=== PATIENT | male | born 1960 | race African-American/Black ===

== ENCOUNTER 2018-08-10 10:29 | Emergency (ER) | payer MEDICAID ==
[~2018-08-10] VITALS: Ht 175.3 cm; Wt 107.0 kg
[2018-08-10] MEDS ORDERED: ONDANSETRON HCL 4MG/2ML INJ IV STA (11:01)
[2018-08-10] MEDS ORDERED: SODIUM CHLORIDE 0.9% 1,000 ML IV ONE (11:01)
[2018-08-10] MEDS ORDERED: MECLIZINE 25MG TABLET PO ONE (11:15)
[2018-08-10 11:48] LABS: BASOPHILS % 1.2 % (0.0-2.0); EOSINOPHILS % 2.5 % (0.0-5.0); HEMATOCRIT. 45.5 % (42.0-52.0); HEMOGLOBIN. 15.4 g/dL (14.0-18.0); LYMPHOCYTES % 31.4 % (20.0-50.0); MEAN CORPUSCULAR VOLUME 82.8 fL (80.0-94.0); MEAN PLATELET VOLUME 10.4 fl (7.4-10.4); MONOCYTES % 6.6 % (2.0-8.0); NEUTROPHILS % 58.3 % (40.0-76.0); PLATELET 298 x1000/uL (130-400); RED CELL DISTRIBUTION WIDTH 13.4 % (11.6-14.6)
[2018-08-10 11:55] LABS: CHLORIDE 101 mEq/L (98-107)
[2018-08-10 11:58] LABS: ETHANOL BLOOD 21 mg/dL; PROTHROMBIN TIME 9.7 sec (9.1-11.1)
[2018-08-10 12:00] LABS: BETA HYDROXYBUTYRATE 0.2 mMol/L (0.0-0.3)
[2018-08-10 12:12] LABS: CLARITY URINE CLEAR (CLEAR); COLOR URINE YELLOW (YELLOW); KETONES URINE TRACE (NEGATIVE); LEUKOCYTE ESTERASE URINE NEGATIVE (NEGATIVE); NITRITE URINE NEGATIVE (NEGATIVE); OCCULT BLOOD URINE NEGATIVE (NEGATIVE); PROTEIN URINE NEGATIVE (NEGATIVE); SPECIFIC GRAVITY URINE 1.037 (1.005-1.030); UROBILINOGEN URINE 0.2 E.U./dL (0.2-1.0)
[2018-08-10 13:47] VITALS: BP 142/80
[2018-08-10 14:11] LABS: *AMPHETAMINES SCREEN URINE NEGATIVE (NEGATIVE); *BARBITURATES SCREEN URINE NEGATIVE (NEGATIVE); *BENZODIAZEPINES SCREEN URINE NEGATIVE (NEGATIVE); *COCAINE SCREEN URINE NEGATIVE (NEGATIVE); METHADONE URINE SCREEN NEGATIVE (NEGATIVE)
[2018-08-10 14:12] LABS: CANNABINOID URINE SCREEN NEGATIVE (NEGATIVE); PHENCYCLIDINE URINE SCREEN NEGATIVE (NEGATIVE)
[2018-08-10 14:15] LABS: OPIATES URINE SCREEN NEGATIVE (NEGATIVE)
== END 2018-08-10 13:48 | disposition home or self-care (01) ==
LOC: ER 10:29
DX: R51 Headache (principal); R42 Dizziness and giddiness; E11.65 Type 2 diabetes mellitus with hyperglycemia; Z98.890 Other specified postprocedural states
CPT/HCPCS: 36415; 70450; 74022; 80053; 80305; 81003; 82010; 82962; 83690; 83735; 83880; 84484; 85025; 85610; 93005; 96361; 96374; 99284; G0482; J2405; J7030; J8597

== ENCOUNTER 2020-11-21 10:11 | Emergency (ER) | payer MEDICAID ==
[~2020-11-21] VITALS: Ht 175.3 cm; Wt 103.0 kg
[2020-11-21] MEDS ORDERED: HYDROCODONE/ACETAMINOPHEN 5/325MG TABLET PO STA (10:44)
[2020-11-21 12:36] VITALS: BP 140/69
[2020-11-21 13:27] LABS: BASOPHILS % 0.9 % (0.0-2.0); EOSINOPHILS % 2.2 % (0.0-5.0); HEMATOCRIT. 41.7 % (42.0-52.0); HEMOGLOBIN. 13.9 g/dL (14.0-18.0); LYMPHOCYTES % 29.2 % (20.0-50.0); MEAN CORPUSCULAR HEMOGLOBIN 27.4 pg (28.0-32.0); MEAN CORPUSCULAR VOLUME 82.3 fL (80.0-94.0); MEAN PLATELET VOLUME 9.9 fl (7.4-10.4); MONOCYTES % 7.2 % (2.0-8.0); NEUTROPHILS % 60.5 % (40.0-76.0); PLATELET 272 x1000/uL (130-400); RED BLOOD CELL COUNT 5.07 mill/uL (4.7-6.1); RED CELL DISTRIBUTION WIDTH 13.3 % (11.6-14.6)
[2020-11-21 13:28] LABS: CLARITY URINE CLEAR (CLEAR); COLOR URINE YELLOW (YELLOW); KETONES URINE NEGATIVE (NEGATIVE); LEUKOCYTE ESTERASE URINE NEGATIVE (NEGATIVE); NITRITE URINE NEGATIVE (NEGATIVE); OCCULT BLOOD URINE NEGATIVE (NEGATIVE); PH URINE 5.5 (4.5-8.0); PROTEIN URINE NEGATIVE (NEGATIVE); SPECIFIC GRAVITY URINE 1.037 (1.005-1.030); UROBILINOGEN URINE 0.2 E.U./dL (0.2-1.0)
[2020-11-21 13:34] LABS: CHLORIDE 101 mEq/L (98-107)
[2020-11-21 14:33] LABS: HEPATITIS B SURFACE ANTIGEN NEGATIVE
[2020-11-21 15:03] LABS: HEPATITIS A AB IGM NEGATIVE (NEGATIVE)
[2020-11-23 08:12] LABS: NEISSERIA GONORRHOEAE NAA Negative (Negative)
[2020-11-24 09:30] LABS: HIV SCREEN 4G Non Reactive (Non Reactive)
== END 2020-11-21 15:14 | disposition home or self-care (01) ==
LOC: ER 10:11
DX: N50.812 Left testicular pain (principal); R03.0 Elevated blood-pressure reading, without diagnosis of hypertension; E11.65 Type 2 diabetes mellitus with hyperglycemia; E87.1 Hypo-osmolality and hyponatremia; N43.3 Hydrocele, unspecified; C61 Malignant neoplasm of prostate; D64.9 Anemia, unspecified; M54.5 Low back pain; M79.652 Pain in left thigh; Z79.899 Other long term (current) drug therapy; Z98.890 Other specified postprocedural states
CPT/HCPCS: 36415; 76870; 80053; 81003; 82962; 83036; 84153; 85025; 86592; 86705; 86709; 86803; 87340; 87389; 87491; 87591; 93005; 93976; 99285; G0103